=== PATIENT | male | born 1980 | race Caucasian/White ===

== ENCOUNTER 2017-06-12 19:26 | Emergency (ER) | payer MEDICARE, OTHER, MEDICAID | END 2017-06-13 00:26 | disposition E | LOC: M ED 06-13 00:26 | DX: I46.9 Cardiac arrest, cause unspecified (principal); Z79.2 Long term (current) use of antibiotics; Z79.899 Other long term (current) drug therapy | CPT/HCPCS: 92950 ==

== ENCOUNTER → 2017-06-14 | Outpatient (REF) | LOC: M LAB 14:04 ==